=== PATIENT | female | born 1985 | race Caucasian/White ===

== ENCOUNTER 2016-11-03 21:57 | Emergency (ER) ==
[2016-11-03] MEDS ORDERED: NORCO-7.5 PO ONE (23:40)
[2016-11-03] MEDS ORDERED: PEN VK PO ONE (23:40)
--- NOTE | 2016-11-03 23:43 | PROVIDER DOCUMENTATION ---
HPI-EENT General - General Chief Complaint: Toothache Stated Complaint: TOOTHACHE Time Seen by Provider: 11/03/16 23:20 Source: patient Allergies/Adverse Reactions: Patient Allergies Allergy/AdvReac Type Severity Reaction Status Date / Time tramadol AdvReac Mild VOMITING Verified 11/04/16 00:20 Home Medications: Gabapentin [Neurontin] 300 mg PO BID 07/23/16 Glipizide 5 mg PO BID 07/23/16 Lisinopril 20 mg PO BID 07/23/16 Metformin [Glucophage] 850 mg PO TID 07/23/16 - History of Present Illness-EENT General Nature of Presenting Problem: 31 year old obese WF presents with c/o left lower tooth/jaw pain for 6 days. pt reports this has been bothering her intermittent for 9 months. she reports she finally has the money to pay for an extraction this Wednesday in [place]. pt denies fever, chills, elevated BG at home. EENT Location: reports: mouth, facial, dental Quality of Pain: reports: aching, burning, dull Severity: reports: mild Onset/Duration: reports: 6 days ago Timing: reports: still present, constant, getting worse Prearrival Treatment: Initiated over the counter meds Associated Symptoms: reports: facial pain/swelling, tooth pain. denies: cough, drooling Review of Systems - Adult - REVIEW OF SYSTEMS - ADULT Constitutional: reports: no symptoms reported. denies: chills, fever, fatique Eyes: reports: no symptoms reported. denies: discharge, blurred vision, double vision Ears, Nose, Mouth & Throat: reports: see HPI, mouth/dental pain, mouth swelling . denies: ear discharge, ear pain, throat pain, throat swelling Cardiovascular: reports: no symptoms reported. denies: chest pain, palpitations , syncope Respiratory: reports: no symptoms reported. denies: chronic cough, cough, shortness of breath, wheezing Gastrointestinal: reports: no symptoms reported. denies: abdominal pain, diarrhea, nausea, vomiting Genitourinary: reports: no symptoms reported. denies: dysuria, hematuria, urgency Musculoskeletal: reports: no symptoms reported. denies: bone pain, joint pain, joint swelling, neck pain Integumentary: reports: no symptoms reported. denies: hives, mole changes, skin thickening Neurological: reports: no symptoms reported. denies: ataxia, dizziness/vertigo Psychiatric: reports: no symptoms reported Endocrine: reports: no symptoms reported Hematologic/Lymphatic: reports: no symptoms reported Allergic/Immunologic: reports: no symptoms reported All Other Systems: Reviewed and Negative Past History - Adult - PAST MEDICAL HISTORY-ADULT Review of Records: reports: Old Records Reviewed, Nursing Assessment Review, Medications Reviewed, Social history reviewed & non-contributory. Major Childhood Illnesses: reports: denies history Cardiovascular: reports: denies history Respiratory: reports: asthma Gastrointestinal: reports: denies history Obstetrical/Gynecological: reports: denies history Genitourinary: reports: denies history Musculoskeletal: reports: denies history Neurological: reports: denies history Endocrine/Immune: reports: Diabetes Other Conditions: reports: denies history - PRIOR SURGERIES/PROCEDURES Surgical/Procedure History: reports: BTL, cholecystectomy - IMMUNIZATION STATUS Childhood Immunizations: See Nurse Assessment Flu Vaccine: See Nurse Assessment - FAMILY HISTORY Family History: reviewed, not pertinent - SOCIAL HISTORY Smoking: cigarettes, greater than 1 pack/day Provider spent 3-5 mins advising pt. on dangers of tobacco.: Discussed manners to quit use, and f/u contacts for add'l counseling. Substance Use: none/never Alcohol Use Frequency: never Physical Exam- EENT - Physical Exam EENT Initial Vital Signs Reviewed: Yes General Appearance: appears well, alert, no apparent distress Eye Exam: bilateral eye: normal inspection Ear Exam: bilateral ear: auricle normal, canal normal, TM normal Nasal Exam: normal inspection Throat Exam: normal mouth inspection, pharynx normal, dental tenderness, mandibular swelling. negative: excessive drooling, pharynx tenderness, tongue swollen, tonsillar exudate, tonsillar swelling, uvula swelling Mouth,Throat: 1 - cracked, broken teeth. Neck: non-tender, full range of motion, supple, normal inspection. negative: lymphadenopathy Respiratory: chest non-tender, lungs clear, normal breath sounds, no pleuratic chest pain, no respiratory distress, no accessory muscle use Cardiovascular: normal peripheral pulses, regular rate, rhythm, no edema, no gallop, no JVD, no murmur Abdominal Exam: normal bowel sounds, non tender, soft, no organomegaly, no pulsatile mass Lymphatic: no adenopathy Back Exam: normal inspection, no CVA tenderness, no vertebral tenderness Extremity: normal range of motion, non-tender, normal gait, normal inspection, no pedal edema, no calf tenderness, normal capillary refill, pelvis stable Integumentary: normal color, normal turgor, warm/dry Neurologic: grossly normal, no motor/sensory deficits Psych/Mental Status: AL, normal mood/affect, normal thought content, normal thought process, oriented x 3 Progress - PLAN OF CARE/RESULTS Progress/Plan/Lab Results: Orders Category Date Time Status Hydrocodone/APAP 7.5 mg/325 mg [Cunningham-7.5] Med 11/03/16 23:40 Discontinued 1 each PO NOW ONE Penicillin V Potassium [Pen Vk] Med 11/03/16 23:40 Discontinued 500 mg PO NOW ONE Vital Signs - 24 hr 11/03/16 11/04/16 22:02 00:22 Temperature 98.7 F 97.9 F Pulse Rate 103 H 88 Respiratory 20 16 Rate Blood Pressure 146/89 142/81 O2 Sat by Pulse 99 100 Oximetry Departure - Departure Time of Disposition Order: 23:40 DIAGNOSIS: Tooth ache Disposition: HOME Certified Medical Emergency: Emergent Condition: Stable Additional Instructions: Follow up with your dentist as scheduled on Wednesday. ED Follow Up Instructions: You have been treated by a care provider in the Emergency Department. These instructions are being provided to you so you can have an understanding of how to care for yourself upon discharge. Upon discharge from the Emergency Department, you are responsible for making arrangements for follow-up care by a physician of your choice. Take all prescribed medications as directed. Return to the Emergency Department immediately for any new or worsening symptoms. You may call the Physician Referral phone number at [phone] to obtain a list of Physicians who are taking new patients. Prescriptions: Hydrocodone/APAP 5 mg/325 mg [Cunningham-5] 1 each PO Q6H PRN PRN #7 tablet PRN Reason: Pain Penicillin V Potassium 500 mg PO BID #20 tablet Referrals: Zane Fuentes [Primary Care Provider] - Instructions: Dental Pain Attestation - Physician/ Mid-level Attestation Patient care was provided by Mid-level provider (PROGRAM/MUSIC DIRECTOR/PA):: Yes Mid-level provider:: Yuri Borden Mid-level documentation review:: The Mid-level provider documentation, treatment plan and medical decision making was reviewed by the physician who agrees with all treatment and medical decision making by the MLP.
[2016-11-04 00:23] VITALS: BP 142/81
== END 2016-11-04 00:22 | disposition home or self-care (01) ==
LOC: ED 21:57
DX: K08.89 Other specified disorders of teeth and supporting structures (principal); R68.84 Jaw pain; R22.0 Localized swelling, mass and lump, head; S02.5XXA Fracture of tooth (traumatic), initial encounter for closed fracture; E11.9 Type 2 diabetes mellitus without complications; F17.210 Nicotine dependence, cigarettes, uncomplicated; Z79.899 Other long term (current) drug therapy; Z71.6 Tobacco abuse counseling
CPT/HCPCS: 99282